=== PATIENT | female | born 1950 | race Caucasian/White ===

== ENCOUNTER 2018-04-26 16:20 | Emergency (ER) | payer MEDICARE ==
[~2018-04-26] VITALS: Ht 157.5 cm; Wt 65.3 kg
[2018-04-26] MEDS ORDERED: COREG6.25 MG PO (16:35)
[2018-04-26] MEDS ORDERED: CLEOCIN HCL150 MG PO (16:55)
[2018-04-26] MEDS ORDERED: BACTRIM DS TAB1 EACH PO (16:55)
[2018-04-26] MEDS ORDERED: [UNRECOGNIZED DRUG - OTHER] IM (17:31)
[2018-04-26] MEDS ORDERED: IMOVAX RABIE2.5 UNI1 IM (17:31)
[2018-04-26 17:44] VITALS: BP 134/73
== END 2018-04-26 17:44 | disposition home or self-care (01) ==
LOC: M.ERS 16:20
DX: S71.151A Open bite, right thigh, initial encounter (principal); W54.0XXA Bitten by dog, initial encounter; Y93.89 Activity, other specified; Y92.89 Other specified places as the place of occurrence of the external cause; Y99.8 Other external cause status; I10 Essential (primary) hypertension; Z88.0 Allergy status to penicillin; Z88.5 Allergy status to narcotic agent